=== PATIENT | male | born 1945 | race African-American/Black ===

== ENCOUNTER 2017-11-13 11:29 | Inpatient (IN) | payer OTHER ==
[~2017-11-13] VITALS: Ht 198.1 cm; Wt 91.4 kg
[2017-11-13] VITALS (28 sets, daily range): BP systolic 88–125; BP diastolic 34–90
--- NOTE | ~2017-11-13 | PATH ---
[facility] [place] [address] PATHOLOGY RPT PROCEDURE Name: JARED STEVENS Room #: 459-P DIS IN M.R.#: [id number] Admission: 11/13/17 Date of : 47 Discharge: 11/17/17 Report #: [id number] Path Case #: [id number] [facility] Accession Number: [id number] . 01 Material submitted: . PART A: POLYPS OF ANTRAL GASTRIC X2 PART B: GASTRIC BX R/O H.PYLORI . 01 Clinical history: . Pre-OP DX: GI bleed Post-OP DX: Gastric duodenitis, 2 antral polyps, refer to requisition for additional information . 02 Diagnosis: A. "Polyps antral gastric x 2", biopsy: - Hyperplastic/inflammatory polyps with acute and chronic inflammation, ulceration and granulation tissue; no dysplasia seen. . B. "Gastric bx R/O H. pylori", biopsy: - Scant superficial fragments of foveolar epithelium with mild reactive changes. - Admixed bone and cartilaginous tissue present (see comment). - Negative H. pylori immunohistochemical stain (block B1); control reacted appropriately. CABRERAQ/11/16/2017 . 02 Comment: Within specimen B, the focal cartilage and bony tissue may represent retained food. Clinical and endoscopic correlation is recommended. No dysplasia is seen in any of the biopsies. (CLW:db; 11/16/2017) . 02 Electronically signed: . Adela Escalante MD, Pathologist NPI- [id number] . 01 Gross description: . A.Received in formalin labeled "Jared Stevens, polyps of antral gastric," are 2 segments of sharma soft tissue measuring 0.5 x 0.2 x 0.2 cm in aggregate dimensions and ranging from 0.2 to 0.3 cm in maximum dimension. The specimen is submitted entirely in cassette A1. . B.Received in formalin labeled "Jared Stevens, BX of gastric, rule out H. pylori," are 2 segments of sharma soft tissue measuring 0.2 x 0.1 x 0.1 cm in aggregate dimensions and measuring less than 0.1 cm each in maximum dimension. The specimen is filtered and submitted entirely in cassette A1. [facility] [address] [place] [address] PATHOLOGY RPT PROCEDURE Name: JARED STEVENS Room #: 459-P DIS IN M.R.#: [id number] Admission: 11/13/17 Date of : 47 Discharge: 11/17/17 Report #: [id number] Path Case #: [id number] (TSD; 11/15/2017) TOB/TOB . 02 Pathologist provided ICD-10: K29.50, K92.2 . 02 CPT . 546411, 612839 Performed at: [address], [place] [id number] MD Stephan Hannon MD Phone: [phone] Performed at: [address] [id number] MD Clemencia Escobar MD Phone: [phone]
--- NOTE | ~2017-11-13 | EKG ---
[address] [address] ELECTROCARDIOGRAM REPORT Name: NOAH ORTIZ Room #: 238-P ADM IN M.R.#: [id number] Admission: 11/13/17 Attend Phys: Radha Mcmullen Discharge: Date of : 47 Report #: [id number] THIS REPORT FOR: //name// [facility] Test Date: 2017-11-13 Test Time: 12:00:00 Pat Name: NOAH ORTIZ Department: Room: Gender: Genetic Coordinator: : 1945 Requested By: Marvin Stahl Order Number: [id number] MD: Simon Pritchett Measurements Intervals [place] Rate: P: DC: QRS: QRSD: T: QT: QTc: Interpretive Statements Atrial fibrillation Early R-wave progression No previous ECG available for comparison Electronically Signed On 11-13-2017 16:00:15 CDT by Simon Pritchett [email or web address] <ELECTRONICALLY SIGNED> By: Simon Pritchett MD, [facility] 11/13/17 1600 1200 1200 Simon Pritchett MD, FACC /EPI
[2017-11-13 11:49] LABS: WBC 4.1 thou/uL (4.0-11.0)
[2017-11-13 11:52] LABS: MCH 27.4 pg (26.0-34.0); MCHC 31.7 g/dL (28.0-37.0); MCV 86.3 fL (80.0-100.0); PLATELET COUNT 239 thou/uL (150-400); RBC 2.24 mil/uL (4.50-6.00); RDW 22.9 % (10.5-14.5)
[2017-11-13 11:55] LABS: ANION GAP 13 mmol/L (7-16); BUN 53 mg/dL (7-18); CALCIUM 9.8 mg/dL (8.5-10.1); CHLORIDE 110 mmol/L (98-107); CO2 19 mmol/L (21-32); CREATININE 2.1 mg/dL (0.7-1.3); GLUCOSE 73 mg/dL (74-106); HEMATOCRIT 19.3 % (42.0-52.0); HEMOGLOBIN 6.1 gm/dL (14.0-18.0); POTASSIUM 3.6 mmol/L (3.5-5.1); SODIUM 142 mmol/L (136-145)
[2017-11-13 12:03] LABS: INR 2.7; PROTIME 27.4 Seconds (9.3-11.4)
[2017-11-13 12:04] LABS: ALBUMIN 2.4 g/dL (3.4-5.0); SGOT 28 U/L (15-37); SGPT 15 U/L (30-65); TOTAL BILIRUBIN 0.6 mg/dL (<0.1-1.0); TROPONIN-I < 0.04 ng/mL (<0.06)
[2017-11-13 12:31] LABS: ABSOLUTE NEUTROPHILS 2.5 thou/uL (1.4-8.2); ANISOCYTOSIS 2+; HYPOCHROMASIA 2+; MICROCYTES 2+; OVALOCYTES 1+; PLATELET ESTIMATE NORMAL
[2017-11-13] MEDS ORDERED: COUMADIN 3 MG TA3 M1 PO (16:39)
[2017-11-13] MEDS ORDERED: [UNRECOGNIZED DRUG - CODE] SUBQ (16:42)
[2017-11-13] MEDS ORDERED: OXYCODONE HCL5 MG PO (16:43)
[2017-11-13] MEDS ORDERED: ULTRAM 50MG TAB50 MG PO (16:44)
[2017-11-13] MEDS ORDERED: ASPIR 8181 MG PO (16:44)
[2017-11-13] MEDS ORDERED: ATORVASTATIN CA40 MG PO (16:44)
[2017-11-13] MEDS ORDERED: VITAMIN B-12500 MCG PO (16:46)
[2017-11-13] MEDS ORDERED: COREG3.125 MG PO (16:46)
[2017-11-13] MEDS ORDERED: LACTULOSE20 GM/30 M PO (16:47)
[2017-11-13] MEDS ORDERED: LASIX 40 MG TAB40 M2 PO (16:47)
[2017-11-13] MEDS ORDERED: FA-80.8 MG PO (16:47)
[2017-11-13] MEDS ORDERED: REMERON15 MG PO (16:48)
[2017-11-13] MEDS ORDERED: CENTRUM SILVER1 EAC2 PO (16:48)
[2017-11-13] MEDS ORDERED: MIRALAX17 GM PO (16:48)
[2017-11-13] MEDS ORDERED: PROTONIX40 M1 PO (16:48)
[2017-11-13] MEDS ORDERED: XIFAXAN550 M1 PO (16:49)
[2017-11-13] MEDS ORDERED: KLOR-CON 1010 MEQ PO (16:49)
[2017-11-13] MEDS ORDERED: PROBIOTIC1 EAC1 PO (16:49)
[2017-11-13] MEDS ORDERED: VITAMIN D250000 UNIT PO (16:50)
[2017-11-13] MEDS ORDERED: ALDACTONE50 MG PO (16:50)
[2017-11-13] MEDS ORDERED: IRON325 PO (16:51)
[2017-11-13] MEDS ORDERED: SERTRALINE HCL50 MG PO (16:51)
[2017-11-13] MEDS ORDERED: MEGESTROL400 MG/11 PO (16:51)
[2017-11-14] VITALS (46 sets, daily range): BP systolic 71–115; BP diastolic 44–84
[2017-11-14 05:13] LABS: HEMOGLOBIN 6.9 gm/dL (14.0-18.0); MCH 27.8 pg (26.0-34.0); MCHC 31.6 g/dL (28.0-37.0); PLATELET COUNT 219 thou/uL (150-400); RDW 21.9 % (10.5-14.5); WBC 4.9 thou/uL (4.0-11.0)
[2017-11-14 05:24] LABS: ALBUMIN 2.6 g/dL (3.4-5.0); CALCIUM 9.6 mg/dL (8.5-10.1); CREATININE 2.2 mg/dL (0.7-1.3); MAGNESIUM 1.8 mg/dL (1.8-2.4); POTASSIUM 3.7 mmol/L (3.5-5.1); TOTAL BILIRUBIN 0.9 mg/dL (<0.1-1.0); TOTAL PROTEIN 7.2 g/dL (6.4-8.2)
[2017-11-14 07:56] LABS: INR 2.1; PROTIME 21.3 Seconds (9.3-11.4)
[2017-11-14 08:51] LABS: ABSOLUTE NEUTROPHILS 3.5 thou/uL (1.4-8.2); ANISOCYTOSIS 1+; HYPOCHROMASIA 2+; PLATELET ESTIMATE NORMAL
[2017-11-14 12:30] LABS: HEMATOCRIT 23.8 % (42.0-52.0); HEMOGLOBIN 7.8 gm/dL (14.0-18.0)
[2017-11-14 21:44] LABS: HEMATOCRIT 23.7 % (42.0-52.0); HEMOGLOBIN 7.8 gm/dL (14.0-18.0)
[2017-11-15] VITALS (37 sets, daily range): BP systolic 80–130; BP diastolic 42–78
[2017-11-15 04:54] LABS: INR 1.5; PROTIME 15.3 Seconds (9.3-11.4)
[2017-11-15 05:01] LABS: HEMATOCRIT 23.5 % (42.0-52.0); HEMOGLOBIN 7.5 gm/dL (14.0-18.0); MCHC 32.2 g/dL (28.0-37.0); MCV 87.2 fL (80.0-100.0); RBC 2.69 mil/uL (4.50-6.00); WBC 4.5 thou/uL (4.0-11.0)
[2017-11-15 05:20] LABS: ALBUMIN 2.6 g/dL (3.4-5.0); CREATININE 2.2 mg/dL (0.7-1.3); POTASSIUM 3.9 mmol/L (3.5-5.1); TOTAL BILIRUBIN 0.8 mg/dL (<0.1-1.0); TOTAL PROTEIN 6.7 g/dL (6.4-8.2)
[2017-11-15 13:40] LABS: HEMATOCRIT 23.2 % (42.0-52.0); HEMOGLOBIN 7.6 gm/dL (14.0-18.0)
[2017-11-16] VITALS (28 sets, daily range): BP systolic 73–137; BP diastolic 44–113
[2017-11-16 04:32] LABS: HEMATOCRIT 24.8 % (42.0-52.0); HEMOGLOBIN 7.9 gm/dL (14.0-18.0); MCH 28.4 pg (26.0-34.0); MCHC 31.9 g/dL (28.0-37.0); RBC 2.79 mil/uL (4.50-6.00); RDW 21.7 % (10.5-14.5); WBC 2.5 thou/uL (4.0-11.0)
[2017-11-16 04:38] LABS: INR 1.3; PROTIME 13.4 Seconds (9.3-11.4)
[2017-11-16 04:49] LABS: ALBUMIN 2.6 g/dL (3.4-5.0); CALCIUM 8.9 mg/dL (8.5-10.1); PHOSPHORUS 3.6 mg/dL (2.5-4.9)
[2017-11-16 20:58] LABS: HEMATOCRIT 23.8 % (42.0-52.0); HEMOGLOBIN 7.7 gm/dL (14.0-18.0)
[2017-11-17 03:40] VITALS: BP 94/46
[2017-11-17 05:05] LABS: HEMATOCRIT 22.9 % (42.0-52.0); HEMOGLOBIN 7.5 gm/dL (14.0-18.0); MCH 28.6 pg (26.0-34.0); MCHC 32.6 g/dL (28.0-37.0); MCV 87.7 fL (80.0-100.0); RBC 2.62 mil/uL (4.50-6.00); RDW 21.7 % (10.5-14.5); WBC 4.2 thou/uL (4.0-11.0)
[2017-11-17 07:45] VITALS: BP 103/59
[2017-11-17] MEDS ORDERED: ULTRAM 50MG TAB50 MG PO (10:20)
== END 2017-11-17 13:52 | DRG 377 ==
LOC: ER 11:29 → ICU 12:17 → EROBS 12:17 → ICU 14:04 → 4W 11-16 18:10
PROVIDERS: Emergency Medicine; Hospitalist; Internal Medicine Gastroenterology
PROC: 30233L1 Transfusion of Nonautologous Fresh Plasma into Peripheral Vein, Percutaneous Approach (ICD-10-PCS; principal; 2017-11-13)
PROC: 30233K1 Transfusion of Nonautologous Frozen Plasma into Peripheral Vein, Percutaneous Approach (ICD-10-PCS; principal; 2017-11-13)
PROC: 30233N1 Transfusion of Nonautologous Red Blood Cells into Peripheral Vein, Percutaneous Approach (ICD-10-PCS; principal; 2017-11-13)
PROC: 0DB68ZX Excision of Stomach, Via Natural or Artificial Opening Endoscopic, Diagnostic (ICD-10-PCS; 2017-11-15)
DX: K55.21 Angiodysplasia of colon with hemorrhage (principal); R57.8 Other shock; K76.6 Portal hypertension; D68.9 Coagulation defect, unspecified; D62 Acute posthemorrhagic anemia; I10 Essential (primary) hypertension; I48.91 Unspecified atrial fibrillation; E78.5 Hyperlipidemia, unspecified; K70.30 Alcoholic cirrhosis of liver without ascites; I87.8 Other specified disorders of veins; K72.90 Hepatic failure, unspecified without coma; K31.7 Polyp of stomach and duodenum; Z79.899 Other long term (current) drug therapy; Z86.718 Personal history of other venous thrombosis and embolism; Z90.49 Acquired absence of other specified parts of digestive tract; Z95.820 Peripheral vascular angioplasty status with implants and grafts; Z79.01 Long term (current) use of anticoagulants; K29.91 Gastroduodenitis, unspecified, with bleeding
CPT/HCPCS: 10047; 10078; 62110; 62900

== ENCOUNTER 2018-04-16 15:13 | Inpatient (IN) | payer OTHER ==
[~2018-04-16] VITALS: Ht 185.4 cm; Wt 90.7 kg
--- NOTE | ~2018-04-16 | EKG ---
[facility] [place] [address] ELECTROCARDIOGRAM REPORT Name: NOAH ORTIZ Room #: 355-P [facility] IN M.R.#: [id number] Admission: 04/16/18 Attend Phys: Radha Mcmullen Discharge: 04/16/18 Date of : 47 Report #: [id number] THIS REPORT FOR: //name// [facility] ED Test Date: 2018-04-16 Test Time: 15:29:16 Pat Name: NOAH ORTIZ Department: Room: [facility] Gender: M Tafe Teacher: MICHAEL : 1945 Requested By: Zay Paiz Order Number: [id number] MD: Simon Pritchett Measurements Intervals [place] Rate: 68 P: HI: QRS: 18 QRSD: 153 T: -30 QT: 622 QTc: 662 Interpretive Statements Atrial fibrillation Occasional premature ventricular complexes Right bundle branch block Nonspecific ST and T wave abnormality No previous ECG available for comparison Electronically Signed On 04-17-2018 8:43:25 ACOUSTICAL ENGINEER by Simon Pritchett [email or web address] <ELECTRONICALLY SIGNED> By: Simon Pritchett MD, [facility] 04/17/18 0843 1529 1529 Simon Pritchett MD, FACC /EPI
[~2018-04-16 15:13] MED LIST: ALDACTONE50 MG PO; ASPIR 8181 MG PO; ATORVASTATIN CA40 MG PO; CENTRUM SILVER1 EAC2 PO; COREG3.125 MG PO; COUMADIN 3 MG TA3 M1 PO; FA-80.8 MG PO; IRON325 PO; KLOR-CON 1010 MEQ PO; LACTULOSE20 GM/30 M PO; LASIX 40 MG TAB40 M2 PO; MEGESTROL400 MG/11 PO; MIRALAX17 GM PO; OXYCODONE HCL5 MG PO; PROBIOTIC1 EAC1 PO; PROTONIX40 M1 PO; REMERON15 MG PO; SERTRALINE HCL50 MG PO; ULTRAM 50MG TAB50 MG PO; VITAMIN B-12500 MCG PO; VITAMIN D250000 UNIT PO; XIFAXAN550 M1 PO; [UNRECOGNIZED DRUG - CODE] SUBQ
[2018-04-16 15:14] VITALS: BP 99/55
[2018-04-16 15:38] LABS: HEMATOCRIT 32.2 % (42.0-52.0); HEMOGLOBIN 10.4 gm/dL (14.0-18.0); MCH 29.3 pg (26.0-34.0); MCHC 32.4 g/dL (28.0-37.0); MCV 90.3 fL (80.0-100.0); PLATELET COUNT 163 thou/uL (150-400); RBC 3.57 mil/uL (4.50-6.00); RDW 26.2 % (10.5-14.5); WBC 2.1 thou/uL (4.0-11.0)
[2018-04-16 15:49] LABS: ANION GAP 17 mmol/L (7-16); BUN 50 mg/dL (7-18); CALCIUM 11.5 mg/dL (8.5-10.1); CHLORIDE 100 mmol/L (98-107); CREATININE 2.5 mg/dL (0.7-1.3); GLUCOSE 104 mg/dL (74-106); POTASSIUM 3.4 mmol/L (3.5-5.1); SODIUM 128 mmol/L (136-145)
[2018-04-16 15:53] LABS: URINE BILIRUBIN NEGATIVE (Negative); URINE BLOOD NEGATIVE (Negative); URINE CLARITY HAZY; URINE COLOR YELLOW; URINE GLUCOSE-RANDOM* NEGATIVE (Negative); URINE KETONES TRACE (Negative); URINE LEUKOCYTES-REFLEX 1+ (Negative); URINE NITRITE-REFLEX NEGATIVE (Negative); URINE PROTEIN (DIPSTICK) NEGATIVE (Negative); URINE SPECIFIC GRAVITY >= 1.030 (1.005-1.035); URINE UROBILINOGEN 0.2 E.U./dl (0.2-1.0)
[2018-04-16 15:53] LABS: CO2 11 mmol/L (21-32)
[2018-04-16 15:58] LABS: ALBUMIN 2.8 g/dL (3.4-5.0); MAGNESIUM 2.4 mg/dL (1.8-2.4); SGOT 29 U/L (15-37); SGPT 24 U/L (30-65); TOTAL BILIRUBIN 0.5 mg/dL (<0.1-1.0); TOTAL PROTEIN 7.5 g/dL (6.4-8.2); TROPONIN-I <0.06 ng/mL (<0.06)
[2018-04-16 16:01] LABS: SQUAMOUS None Seen /LPF (0-3); URINE WBC-REFLEX 6-15 Few /HPF (0-5)
[2018-04-16 16:02] LABS: URINE RBC None Seen /HPF (0-2)
[2018-04-16 16:03] LABS: AMORPHOUS URATES Few /LPF (None Seen); CASTS None Seen /LPF (None Seen)
[2018-04-16 16:07] LABS: AMP/METHAMP Negative (Negative); BARBITURATES Negative (Negative); BENZODIAZEPINES Negative (Negative); COCAINE Negative (Negative); METHADONE Negative (Negative); OPIATES Negative (Negative); PCP Negative (Negative)
[2018-04-16 16:12] LABS: ABSOLUTE NEUTROPHILS 1.8 thou/uL (1.4-8.2); ANISOCYTOSIS 2+
[2018-04-16 16:28] LABS: HCO3 9.5 mmol/L (22.0-26.0); PO2 78.5 mmHg (80.0-100.0)
[2018-04-16 16:29] LABS: PCO2 22.2 mmHg (35.0-45.0); pH 7.249 (7.360-7.450)
[2018-04-16 17:42] VITALS: BP 99/40
[2018-04-16 19:39] VITALS: BP 53/30
== END 2018-04-16 20:10 | DRG 871 ==
LOC: ER 15:13 → EROBS 16:50 → 3W 19:08
PROVIDERS: Emergency Medicine
DX: A41.9 Sepsis, unspecified organism (principal); E43 Unspecified severe protein-calorie malnutrition; E72.20 Disorder of urea cycle metabolism, unspecified; E87.2 Acidosis; N39.0 Urinary tract infection, site not specified; R18.8 Other ascites; Z66 Do not resuscitate; I48.91 Unspecified atrial fibrillation; I50.9 Heart failure, unspecified; K72.90 Hepatic failure, unspecified without coma; K74.60 Unspecified cirrhosis of liver; D64.9 Anemia, unspecified; N18.9 Chronic kidney disease, unspecified; E86.0 Dehydration; E83.52 Hypercalcemia; T68.XXXA Hypothermia, initial encounter; Z96.642 Presence of left artificial hip joint; Z86.718 Personal history of other venous thrombosis and embolism; Z79.82 Long term (current) use of aspirin; Z79.899 Other long term (current) drug therapy
CPT/HCPCS: 10879